=== PATIENT | male | born 1995 | race Caucasian/White ===

== ENCOUNTER 2016-07-27 08:28 | Emergency (ER) | payer OTHER ==
[~2016-07-27] VITALS: Ht 185.4 cm; Wt 95.3 kg
[~2016-07-27 08:28] MED LIST: IBUP60TA PO; LORT5TAB PO; No Home meds; TYLE325T5 PO
[2016-07-27] MEDS ORDERED: GENT3OPD OD (09:23)
[2016-07-27] MEDS ORDERED: GENTAMICIN 0.3% OPHTH SOL 5 ML BTL OD ONE (09:30)
[2016-07-27 09:50] VITALS: BP 138/75
== END 2016-07-27 09:57 | disposition home or self-care (01) ==
LOC: M ED 09:04
DX: H10.31 Unspecified acute conjunctivitis, right eye (principal)

== ENCOUNTER 2017-06-30 09:25 | Emergency (ER) | payer OTHER ==
[2017-06-30] MEDS ORDERED: RABIES IMMUNE GLOBULIN 1500 INTERNATIONAL UNITS/10 ML VIAL (90375) IM (10:15)
[2017-06-30] MEDS: RABIES VACCINE HUMAN 2.5 INTERNATIONAL UNITS/ML VIAL (90675) IM (10:15)
[2017-06-30] MEDS: RABIES IMMUNE GLOBULIN 300 INTERNATIONAL UNITS/2 ML VIAL (90375) IM (10:30)
[2017-06-30] MEDS: RABIES IMMUNE GLOBULIN 1500 INTERNATIONAL UNITS/10 ML VIAL (90375) IM (10:30)
== END 2017-06-30 11:26 | disposition home or self-care (01) ==
LOC: M ED 09:25
DX: Z20.3 Contact with and (suspected) exposure to rabies (principal); Z23 Encounter for immunization; S61.452A Open bite of left hand, initial encounter; W55.01XA Bitten by cat, initial encounter; Y92.099 Unspecified place in other non-institutional residence as the place of occurrence of the external cause; Y93.89 Activity, other specified
CPT/HCPCS: 90471